=== PATIENT | male | born 2000 | race Caucasian/White ===

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

== ENCOUNTER 2021-04-10 16:43 | Emergency (ER) | payer OTHER, BC ==
[~2021-04-10] VITALS: Ht 182.9 cm; Wt 90.7 kg
[~2021-04-10 16:43] MED LIST: ALLEGRA-D 24 H1 EACH PO; CIMETIDINE300 MG PO; METHYLPREDNISOLO4 M1 PO; PREDNISONE20 MG PO; SUDOGEST60 MG PO; ZITHROMAX250 MG PO
== END 2021-04-10 20:48 | disposition home or self-care (01) ==
LOC: ED 16:43
DX: S90.31XA Contusion of right foot, initial encounter (principal); W55.22XA Struck by cow, initial encounter; Z88.0 Allergy status to penicillin
CPT/HCPCS: 73630; 99283-25

== ENCOUNTER 2025-01-06 09:39 | Emergency (ER) | payer OTHER ==
[~2025-01-06] VITALS: Ht 182.9 cm; Wt 105.6 kg
[2025-01-06] MEDS ORDERED: DIPHTH,PERTUSS(ACELL),TET VAC 0.5 ML SYRINGE IM ONE (12:15)
[2025-01-06 14:00] VITALS: BP 138/70
== END 2025-01-06 14:00 | disposition home or self-care (01) ==
LOC: ED 09:39
DX: S61.011A Laceration without foreign body of right thumb without damage to nail, initial encounter (principal); W45.8XXA Other foreign body or object entering through skin, initial encounter; Z88.0 Allergy status to penicillin
CPT/HCPCS: 12002; 73140; 90471; 90715; 99283-25